=== PATIENT | female | born 1995 | race Caucasian/White ===

== ENCOUNTER 2016-11-09 14:31 | Emergency (ER) | payer OTHER ==
[~2016-11-09] VITALS: Ht 162.6 cm; Wt 62.0 kg
[2016-11-09] MEDS ORDERED: NADO40TA PO (15:06)
[2016-11-09] MEDS ORDERED: TOPI50TA35 PO (15:06)
[2016-11-09] MEDS ORDERED: ONDANSETRON 2MG/ML, 2ML IVPush ONE (15:30)
[2016-11-09] MEDS ORDERED: SODIUM CHLORIDE 0.9% 1,000ML IVBOLUS ONE (15:30)
[2016-11-09] MEDS ORDERED: SODIUM CHLORIDE FLUSH 10ML SYR IVF ONE (15:30)
[2016-11-09] MEDS ORDERED: ONDANSETRON 2MG/ML, 2ML ONE (15:58)
[2016-11-09] MEDS ORDERED: ACETAMINOPHEN 325 MG TABLET ONE (16:54)
[2016-11-09] MEDS ORDERED: ACETAMINOPHEN 325 MG TABLET PO ONE (17:00)
[2016-11-09 17:06] VITALS: BP 124/78
== END 2016-11-09 17:37 | disposition home or self-care (01) ==
LOC: ED 16:00
DX: T76.21XA Adult sexual abuse, suspected, initial encounter (principal); R10.84 Generalized abdominal pain; Y04.8XXA Assault by other bodily force, initial encounter
CPT/HCPCS: 96361; 96374; 99285; J2405; J7030